=== PATIENT | male | born 1995 | race Caucasian/White ===

== ENCOUNTER → 2017-05-20 | Outpatient (CLI) | payer OTHER ==
--- NOTE | 2017-05-20 12:29 | Diagnostic Imaging Report ---
PROCEDURE: MRI lumbar spine. TECHNIQUE: Multiplanar, multisequence MRI of the lumbar spine was performed without contrast. INDICATION: Low back pain. Comparison: None available. FINDINGS: Lumbar spine is normal in alignment. No fracture or marrow replacing process. The conus terminates at appropriate level. No abnormal clumping of the intrathecal nerve roots. Intervertebral discs maintain normal T2 hyperintense signal and height. There are no disc bulges or herniations at any level. Visualized aspect of the retroperitoneum are normal. IMPRESSION: 1. Normal lumbar spine MRI. Dictated by: Dictated on workstation # [id number]
== END ==
LOC: RAD 10:32
PROVIDERS: ATTEND Nurse Practitioner Family
DX: M54.5 Low back pain (principal)
CPT/HCPCS: 72148